=== PATIENT | male | born 1985 | race Caucasian/White ===

== ENCOUNTER 2022-06-11 09:32 | Emergency (ER) | payer MEDICAID ==
[~2022-06-11] VITALS: Ht 175.3 cm; Wt 70.0 kg
[2022-06-11] MEDS ORDERED: KETOROLAC 60MG/2ML VIAL IM ONE (09:45)
[2022-06-11] MEDS ORDERED: IBUP-2029 MT (09:49)
[2022-06-11] MEDS ORDERED: CYCL10TA21 MT (09:49)
[2022-06-11 10:00] VITALS: BP 115/70
== END 2022-06-11 10:09 | disposition home or self-care (01) ==
LOC: ER 09:32
DX: M54.42 Lumbago with sciatica, left side (principal)
CPT/HCPCS: 96372; 99283; J1885

== ENCOUNTER 2022-09-16 04:09 | Inpatient (IN) | payer MEDICAID ==
[~2022-09-16] VITALS: Ht 170.2 cm; Wt 47.6 kg
[~2022-09-16 04:09] MED LIST: CYCL10TA21 MT; IBUP-2029 MT
[2022-09-16] MEDS ORDERED: KETOROLAC 30MG/ML VIAL IV STA (05:14)
[2022-09-16] MEDS ORDERED: ONDANSETRON HCL 4MG/2ML INJ IV STA (05:14)
[2022-09-16 05:58] LABS: CHLORIDE 94 mEq/L (98-107)
[2022-09-16 06:15] LABS: BASOPHILS % 0.6 % (0.0-2.0); EOSINOPHILS % 1.1 % (0.0-5.0); HEMATOCRIT. 35.9 % (42.0-52.0); HEMOGLOBIN. 12.3 g/dL (14.0-18.0); LYMPHOCYTES % 20.6 % (20.0-50.0); MEAN CORPUSCULAR HEMOGLOBIN 29.9 pg (28.0-32.0); MEAN CORPUSCULAR VOLUME 87.5 fL (80.0-94.0); MEAN PLATELET VOLUME 6.9 fl (7.4-10.4); MONOCYTES % 8.7 % (2.0-8.0); PLATELET 887 x1000/uL (130-400); RED CELL DISTRIBUTION WIDTH 13.6 % (11.6-14.6)
[2022-09-16 06:21] LABS: INR 1.2; PROTHROMBIN TIME 12.6 sec (9.6-11.0)
[2022-09-16] MEDS ORDERED: MORPHINE SULFATE 4 MG/ML CPJ (NOT FOR IM USE) IV ONE (08:15)
[2022-09-16] MEDS ORDERED: POTASSIUM CHLORIDE 20MEQ TABLET SR PO ONE (08:15)
[2022-09-16 11:00] VITALS: BP 126/85
[2022-09-16] MEDS ORDERED: CLONIDINE 0.1MG TABLET PO PRN (11:00)
[2022-09-16] MEDS ORDERED: GUAIFENESIN 200MG/10ML SUGAR FREE UDC PO PRN (11:00)
[2022-09-16] MEDS ORDERED: MAGNESIUM/ALUMINUM HYDROXIDE/SIMETHICONE 30ML UDC PO PRN (11:00)
[2022-09-16] MEDS ORDERED: POTASSIUM CHLORIDE 20MEQ TABLET SR PO NR (11:00)
[2022-09-16] MEDS ORDERED: NITROGLYCERIN 0.4MG TABLET SL SL PRN (11:00)
[2022-09-16] MEDS ORDERED: ONDANSETRON HCL 4MG/2ML INJ IV PRN (11:00)
[2022-09-16] MEDS ORDERED: IPRATROPIUM/ALBUTEROL 0.5-3(2.5)MG/3ML NEB NEB PRN (11:00)
[2022-09-16] MEDS ORDERED: ACETAMINOPHEN 325MG TABLET PO PRN ×2 (11:00)
[2022-09-16 12:00] VITALS: BP 126/85
[2022-09-16] MEDS: SODIUM CHLORIDE 0.9% 1,000 ML IV SCH (12:38)
[2022-09-16] MEDS ORDERED: NAPR-681 MT (12:48)
[2022-09-16] MEDS ORDERED: SULF-13 MT (12:48)
[2022-09-16] MEDS: KETOROLAC 15MG/ML VIAL IV PRN ×2 (12:53→17:29)
[2022-09-16] MEDS ORDERED: KCL 20MEQ/100ML PREMIX 100 ML IV NR (13:00)
[2022-09-16] MEDS ORDERED: *PATIENT'S OWN MEDICATION STORAGE XX SCH (14:00)
[2022-09-16 16:00] VITALS: BP 115/81
[2022-09-16 16:55] LABS: ETHANOL BLOOD < 10 mg/dL; T4 FREE 1.35 ng/dL (0.76-1.46); TOTAL IRON BINDING CAPACITY 278 ug/dL (250-450)
[2022-09-16 19:52] LABS: VITAMIN B12 SERUM 922 pg/mL (211-911)
[2022-09-16 20:00] VITALS: BP 143/71
[2022-09-16] MEDS ORDERED: ZOLPIDEM TARTRATE 5MG TABLET PO PRN (21:00)
[2022-09-17] VITALS: BP 110/71
[2022-09-17] MEDS: SODIUM CHLORIDE 0.9% 1,000 ML IV SCH (00:50)
[2022-09-17] MEDS: KETOROLAC 15MG/ML VIAL IV PRN ×4 (03:17→20:33)
[2022-09-17 04:00] VITALS: BP 117/70
[2022-09-17 08:00] VITALS: BP 125/74
[2022-09-17 08:08] LABS: BASOPHILS % 0.5 % (0.0-2.0); EOSINOPHILS % 1.2 % (0.0-5.0); HEMOGLOBIN. 12.2 g/dL (14.0-18.0); LYMPHOCYTES % 31.1 % (20.0-50.0); MEAN CORPUSCULAR HEMOGLOBIN 30.4 pg (28.0-32.0); MEAN CORPUSCULAR VOLUME 87.2 fL (80.0-94.0); MEAN PLATELET VOLUME 6.8 fl (7.4-10.4); MONOCYTES % 8.6 % (2.0-8.0); NEUTROPHILS % 58.6 % (40.0-76.0); PLATELET 839 x1000/uL (130-400); RED BLOOD CELL COUNT 4.02 mill/uL (4.7-6.1); RED CELL DISTRIBUTION WIDTH 13.6 % (11.6-14.6)
[2022-09-17 08:26] LABS: CHLORIDE 98 mEq/L (98-107)
[2022-09-17 08:34] LABS: PHOSPHORUS 3.3 mg/dL (2.5-4.9)
[2022-09-17] MEDS: PANTOPRAZOLE SODIUM 40 MG/VIAL IV SCH (08:36)
[2022-09-17] MEDS: DOCUSATE SODIUM 100MG CAPSULE PO PRN (08:36)
[2022-09-17 11:50] VITALS: BP 105/63
[2022-09-17 11:56] LABS: *AMPHETAMINES SCREEN URINE NEGATIVE (NEGATIVE); *BARBITURATES SCREEN URINE NEGATIVE (NEGATIVE); *BENZODIAZEPINES SCREEN URINE NEGATIVE (NEGATIVE); *COCAINE SCREEN URINE NEGATIVE (NEGATIVE); CANNABINOID URINE SCREEN PRESUMTIVE POSITIVE (NEGATIVE); METHADONE URINE SCREEN NEGATIVE (NEGATIVE); OPIATES URINE SCREEN PRESUMTIVE POSITIVE (NEGATIVE); PHENCYCLIDINE URINE SCREEN NEGATIVE (NEGATIVE)
[2022-09-17 16:00] VITALS: BP 126/80
[2022-09-17 20:00] VITALS: BP 126/82
[2022-09-18] VITALS: BP 127/86
[2022-09-18] MEDS: KETOROLAC 15MG/ML VIAL IV PRN ×2 (03:56→11:52)
[2022-09-18 04:00] VITALS: BP 118/72
[2022-09-18 07:48] LABS: HEMATOCRIT 33.4 % (42.0-52.0); HEMOGLOBIN 11.4 g/dL (14.0-18.0); MEAN CORPUSCULAR HEMOGLOBIN 29.7 pg (28.0-32.0); PLATELET 811 x1000/uL (130-400); RED BLOOD CELL COUNT 3.83 mill/uL (4.7-6.1); RED CELL DISTRIBUTION WIDTH 13.4 % (11.6-14.6)
[2022-09-18 08:00] VITALS: BP 141/72
[2022-09-18 08:33] LABS: CHLORIDE 98 mEq/L (98-107)
[2022-09-18 08:53] LABS: PHOSPHORUS 3.4 mg/dL (2.5-4.9)
[2022-09-18] MEDS: DOCUSATE SODIUM 100MG CAPSULE PO PRN (11:51)
[2022-09-18] MEDS: PANTOPRAZOLE SODIUM 40 MG/VIAL IV SCH (11:52)
[2022-09-18 12:00] VITALS: BP 131/80
[2022-09-18] MEDS ORDERED: PNEUMOCOCCAL 23-VAL P-SAC VAC 0.5 ML IM ONE (14:00)
[2022-09-18] MEDS ORDERED: INFLUENZA VACCINE 05/PF 0.5 ML SYRINGE IM ONE (14:00)
[2022-09-18 16:00] VITALS: BP 106/64
[2022-09-18 18:04] VITALS: BP 128/78
== END 2022-09-18 21:30 | disposition home or self-care (01) | DRG 251 ==
LOC: ER 04:09 → 8WST 09:29 → ENRESERV 10:11
PROVIDERS: ADMIT Internal Medicine; ATTEND Internal Medicine
DX: R10.13 Epigastric pain (principal); E46 Unspecified protein-calorie malnutrition; M50.222 Other cervical disc displacement at C5-C6 level; M84.48XA Pathological fracture, other site, initial encounter for fracture; M48.02 Spinal stenosis, cervical region; E87.6 Hypokalemia; F17.210 Nicotine dependence, cigarettes, uncomplicated; R74.01 Elevation of levels of liver transaminase levels; M50.322 Other cervical disc degeneration at C5-C6 level; F12.10 Cannabis abuse, uncomplicated; Z20.822 Contact with and (suspected) exposure to COVID-19; M25.78 Osteophyte, vertebrae; F11.10 Opioid abuse, uncomplicated; R32 Unspecified urinary incontinence; R15.9 Full incontinence of feces; T39.315A Adverse effect of propionic acid derivatives, initial encounter; Y92.89 Other specified places as the place of occurrence of the external cause; Z68.1 Body mass index [BMI] 19.9 or less, adult; Z71.51 Drug abuse counseling and surveillance of drug abuser
CPT/HCPCS: 36415; 72141; 74176; 80048; 80053; 80305; 80320; 82607; 82746; 83540; 83550; 83735; 84100; 84439; 84443; 85025; 85027; 87426; 90686; 90732; 93005; 93970; 99285; C9113; G0378; J1885; J2270; J2405; J3480; G0480